=== PATIENT | female | born 1995 | race African-American/Black ===

== ENCOUNTER 2022-07-08 21:23 | Emergency (ER) | payer SELFPAY ==
[~2022-07-08] VITALS: Ht 162.6 cm; Wt 68.0 kg
[2022-07-08] MEDS ORDERED: IV NORMAL SALINE 1000 ML BAG IV ONE (22:45)
[2022-07-08] MEDS ORDERED: diphenhydrAMINE 50 MG CAPSULE PO ONE (22:45)
[2022-07-08] MEDS ORDERED: EPINEPHRINE 1 MG/1 ML AMP IM ONE (22:45)
[2022-07-08] MEDS ORDERED: FAMOTIDINE 20 MG TABLET PO ONE (22:45)
[2022-07-08] MEDS ORDERED: diphenhydrAMINE 50 MG CAPSULE ONE (22:45)
[2022-07-08] MEDS ORDERED: FAMOTIDINE 20 MG TABLET ONE (22:45)
[2022-07-08] MEDS ORDERED: methylPREDNISolone SOD SUCC 125 MG/2 ML VIAL IV ONE (22:45)
[2022-07-08] MEDS ORDERED: EPINEPHRINE 1 MG/1 ML AMP ONE (22:46)
[2022-07-08] MEDS ORDERED: methylPREDNISolone SOD SUCC 125 MG/2 ML VIAL ONE (22:46)
[2022-07-08] MEDS ORDERED: PRED50TA PO (23:59)
[2022-07-09] MEDS ORDERED: EPIN0.3P3 IM
--- NOTE | 2022-07-09 00:04 | NUR ---
Patient discharged to home in stable condition. Written and verbal after care instructions given. Patient verbalizes understanding of instructions. Stressed follow up or return to ER for worsening s/s. Patient is a/ox4, NAD noted, patient is able to walk with steady gait
[2022-07-09 00:05] VITALS: BP 110/72
[2022-07-09 00:13] LABS: *URINE HCG, QUAL NEGATIVE (NEGATIVE)
== END 2022-07-09 00:05 | disposition home or self-care (01) ==
LOC: ER 21:25
DX: T78.1XXA Other adverse food reactions, not elsewhere classified, initial encounter (principal); R07.89 Other chest pain; X58.XXXA Exposure to other specified factors, initial encounter; R11.10 Vomiting, unspecified; L27.2 Dermatitis due to ingested food; Z91.018 Allergy to other foods
CPT/HCPCS: 99284; 96374; 96361; 84703; 96372; Q0163; J0171; J2930; J7040; A4663